=== PATIENT | male | born 1930 | race Caucasian/White ===

== ENCOUNTER 2016-07-04 14:05 | Inpatient (IN) | payer OTHER, MEDICARE ==
[2016-07-04] VITALS (7 sets, daily range): BP systolic 126–166; BP diastolic 67–87; PULSE 71–85; RESP 16–20; TEMP 98.9–100.2; O2SAT 95–98
[~2016-07-04] VITALS: Ht 185.4 cm; Wt 88.2 kg
[~2016-07-04 14:05] MED LIST: LEVO125T3 PO; LOVA40TA PO; METO25CR PO; OMEP20TA39 PO
[2016-07-04] MEDS ORDERED: ASPI325T PO (14:43)
[2016-07-04] MEDS ORDERED: ISOS30TA3 PO (14:43)
[2016-07-04] MEDS ORDERED: LEVO125T4 PO (14:43)
[2016-07-04] MEDS ORDERED: LOVA40TA PO (14:43)
[2016-07-04] MEDS ORDERED: OMEP20TA PO (14:43)
[2016-07-04] MEDS ORDERED: NITR0.4S SL (14:43)
[2016-07-04] MEDS ORDERED: METO25TA3 PO (14:43)
[2016-07-04] MEDS ORDERED: SODIUM CHLORIDE 0.9% FLUSH 5 ML FLUSH IVF PRN (15:00)
--- NOTE | 2016-07-04 15:19 | RADHPO ---
EXAM DATE/TIME: 07/04/2016 15:07 [facility] COMPARISON: No previous studies available for comparison. INDICATIONS : Shortness of breath. MEDICAL HISTORY : Cardiovascular disease. SURGICAL HISTORY : CABG. Pacemaker. ENCOUNTER: Initial ACUITY: 1 week PAIN SCORE: 0/10 LOCATION: Bilateral chest FINDINGS: The patient is status post sternotomy. There is a bi-lead pacemaker in place from the left subclavian approach. The heart size is normal. The lungs are grossly clear. A significant effusion is not seen. CONCLUSION: No acute disease. Familia Cartwright MD on July 04, 2016 at 15:15 Board Certified Radiologist. This report was verified electronically.
--- NOTE | 2016-07-04 15:39 | PD ---
HPI Chief Complaint: Respiratory Symptoms Time Seen by Provider: 14:45 Travel History International Travel<30 days: No Contact w/Intl Traveler<30days: No Traveled to known affect area: No History of Present Illness HPI This is an 86-year-old male who presents to the emergency department with 3 days of generalized weakness, fatigue, feeling like he is having trouble exerting himself. He says whenever he sits down he has trouble getting up. He falls asleep easily. 2 days ago he felt like his legs gave out from under him. He didn't fall or injure his head. Patient denies any chest pain or shortness of breath. He has had a nonproductive cough. He denies any dark stools. He has been checking his temperature and the highest is been is 99.3. Something like this is never happened to him before. PFSH Past Medical History Hx Anticoagulant Therapy: Yes (325MG ASA) Cancer: Yes (NON HODGKINS LYMPHOMA) Cardiovascular Problems: Yes (OPEN HEART 2 YEARS AGO; PM) High Cholesterol: Yes Chemotherapy: Yes () Chest Pain: No Coronary Artery Disease: Yes Diabetes: No Diminished Hearing: No Gastrointestinal Disorders: No GERD: Yes Glaucoma: No Hepatitis: No Hiatal Hernia: No Hypertension: No Integumentary: No Thyroid Disease: Yes Influenza Vaccination: Yes ?: Not Past Surgical History Coronary Artery Bypass Graft: Yes (VALVE REPLACED) Pacemaker: Yes Social History Alcohol Use: No Tobacco Use: No Allergies-Medications (Allergen,Severity, Reaction): Coded Allergies: Darvon (Verified Adverse Reaction, Intermediate, GI UPSET, 07/04/16) Reported Meds & Prescriptions Reported Meds & Active Scripts Active Reported Nitrostat SL (Nitroglycerin) 0.4 Mg Subl 0.4 Mg SL DIRECTED PRN 1 tablet under the tongue as needed for chest pain. Repeat every 5 minutes for a total of 3 DOSES or call 911 if NO relief. Metoprolol Tartrate 25 Mg Tab 25 Mg PO DAILY Omeprazole 20 Mg Tab 20 Mg PO DAILY Isosorbide Mononitrate ER (Isosorbide Mononitrate) 30 Mg Vanna 30 Mg PO DAILY Aspirin 325 Mg Tab 325 Mg PO DAILY Lovastatin 40 Mg Tab 40 Mg PO DAILY Levothyroxine (Levothyroxine Sodium) 125 Mcg Tab 125 Mcg PO DAILY Review of Systems Except as stated in HPI: all other systems reviewed are Neg Physical Exam Narrative GENERAL:Well appearing, no acute distress SKIN: Warm and dry. HEAD: Atraumatic. Normocephalic. EYES: Pupils equal and round. No injection or drainage. ENT: Moist mucous membranes NECK: Trachea midline. CARDIOVASCULAR: Regular rate and rhythm. 3/6 systolic murmur over the left lower sternal border. RESPIRATORY: Rales in the left lower lung field. Clear to auscultation. Breath sounds equal bilaterally. GASTROINTESTINAL: Abdomen soft, non-tender, nondistended. MUSCULOSKELETAL: No obvious deformities. NEUROLOGICAL: Awake and alert. No obvious cranial nerve deficits. Moving all extremities. PSYCHIATRIC: Appropriate mood and affect; insight and judgment normal. Data Data Last Documented VS Vital Signs Date Time Temp Pulse Resp B/P Pulse Ox O2 Delivery O2 Flow Rate FiO2 07/04/16 16:02 85 18 159/67 97 Room Air 07/04/16 14:14 98.9 Orders Electrocardiogram (07/04/16 ) Complete Blood Count With Diff (07/04/16 14:52) Comprehensive Metabolic Panel (07/04/16 14:52) Magnesium (Mg) (07/04/16 14:52) Troponin I (07/04/16 14:52) Chest, Single Ap (07/04/16 14:52) Ecg Monitoring (07/04/16 14:52) Bilateral Bp Monitoring (07/04/16 14:52) Iv Access Insert/Monitor (07/04/16 14:52) Oximetry (07/04/16 14:52) Oxygen Administration (07/04/16 14:52) Sodium Chloride 0.9% Flush (Ns Flush) (07/04/16 15:00) Cath For Specimen (07/04/16 16:23) Urinalysis - C+S If Indicated (07/04/16 16:23) Admit Order (Ed Use Only) (07/04/16 16:54) Labs Laboratory Tests Test 07/04/16 07/04/16 15:35 16:35 White Blood Count 6.8 TH/MM3 Red Blood Count 3.73 MIL/MM3 Hemoglobin 11.5 GM/DL Hematocrit 34.0 % Mean Corpuscular Volume 91.3 FL Mean Corpuscular Hemoglobin 30.8 PG Mean Corpuscular Hemoglobin 33.8 % Concent Red Cell Distribution Width 12.9 % Platelet Count 168 TH/MM3 Mean Platelet Volume 8.4 FL Neutrophils (%) (Auto) 66.3 % Lymphocytes (%) (Auto) 12.0 % Monocytes (%) (Auto) 20.6 % Eosinophils (%) (Auto) 0.1 % Basophils (%) (Auto) 1.0 % Neutrophils # (Auto) 4.5 TH/MM3 Lymphocytes # (Auto) 0.8 TH/MM3 Monocytes # (Auto) 1.4 TH/MM3 Eosinophils # (Auto) 0.0 TH/MM3 Basophils # (Auto) 0.1 TH/MM3 CBC Comment AUTO DIFF Differential Total Cells 100 Counted Neutrophils % (Manual) 67 % Band Neutrophils % 3 % Lymphocytes % 15 % Monocytes % 15 % Neutrophils # (Manual) 4.8 TH/MM3 Differential Comment FINAL DIFF MANUAL Atypical Lymphocytes % Platelet Estimate NORMAL Platelet Morphology Comment NORMAL Red Cell Morphology Comment NORMAL Sodium Level 121 MEQ/L Potassium Level 4.1 MEQ/L Chloride Level 84 MEQ/L Carbon Dioxide Level 26.8 MEQ/L Anion Gap 10 MEQ/L Blood Urea Nitrogen 12 MG/DL Creatinine 0.79 MG/DL Estimat Glomerular Filtration 93 ML/MIN Rate Random Glucose 108 MG/DL Calcium Level 8.0 MG/DL Magnesium Level 2.0 MG/DL Total Bilirubin 0.5 MG/DL Aspartate Amino Transf 39 U/L (AST/SGOT) Alanine Aminotransferase 29 U/L (ALT/SGPT) Alkaline Phosphatase 69 U/L Troponin I 0.04 NG/ML Total Protein 7.7 GM/DL Albumin 3.5 GM/DL Thyroid Stimulating Hormone 0.807 uIU/ML 3rd Gen Urine Color YELLOW Urine Turbidity CLERA Urine pH 6.5 Urine Specific [place] 1.009 Urine Protein TRACE mg/dL Urine Glucose (UA) NEG mg/dL Urine Ketones NEG mg/dL Urine Occult Blood TRACE Urine Nitrite NEG Urine Bilirubin NEG Urine Leukocyte Esterase NEG Urine RBC 4-9 /hpf Urine WBC 0-2 /hpf Urine Squamous Epithelial 0-5 /hpf Cells Microscopic Urinalysis Comment CATH-CULT NOT IND MDM Medical Decision Making Medical Screen Exam Complete: Yes Emergency Medical Condition: Yes Interpretation(s) Afebrile, no tachycardia, normotensive No leukocytosis Hyponatremia TSH is normal Urinalysis: Some red blood cells Differential Diagnosis Arrhythmia, electrolyte abnormality, acute coronary syndrome, urinary tract infection, pneumonia Narrative Course This is an 86-year-old male who presents to the emergency department with generalized weakness. He was placed on a monitor and an IV was established. He was found to have quite a bit of ectopy on telemetry. His pacer was interrogated and demonstrated appropriate sensing and capture with frequent PVCs. Labs demonstrate a sodium of 121. Otherwise urinalysis is negative for infection and chest x-ray was negative for pneumonia. Patient will be admitted for slow hydration in the setting of likely hypovolemic hyponatremia. Physician Communication Physician Communication Discussed with Dr. Lewis Diagnosis Primary Impression: Hyponatremia Admitting Information Admitting Physician Requests: Admit Jo-Ann Montelongo MD Jul 04, 2016 15:39
[2016-07-04 16:08] LABS: AUTOMATED NEUTROPHIL # 4.5 TH/MM3 (1.8-7.7); BASOPHIL # 0.1 TH/MM3 (0-0.2); EOSINOPHIL % 0.1 % (0.0-4.0); LYMPHOCYTE # 0.8 TH/MM3 (1.0-4.8); MEAN CELL VOLUME 91.3 FL (80.0-100.0); MEAN CORPUSCULAR HEMOGLOBIN 30.8 PG (27.0-34.0); MEAN CORPUSCULAR HGB CONC 33.8 % (32.0-36.0); MONO % 20.6 % (0.0-8.0); NEUT % 66.3 % (16.0-70.0); PLATELET COUNT 168 TH/MM3 (150-450); RED BLOOD COUNT 3.73 MIL/MM3 (4.50-5.90); RED CELL DISTRIBUTION WIDTH 12.9 % (11.6-17.2); WHITE BLOOD COUNT 6.8 TH/MM3 (4.0-11.0)
[2016-07-04 16:22] LABS: ANION GAP 10 MEQ/L (5-15); BICARBONATE 26.8 MEQ/L (21.0-32.0); BLOOD UREA NITROGEN 12 MG/DL (7-18); CHLORIDE 84 MEQ/L (98-107); POTASSIUM 4.1 MEQ/L (3.5-5.1)
[2016-07-04 16:30] LABS: ALKALINE PHOSPHATASE 69 U/L (45-117); ALT (GPT) 29 U/L (12-78); AST (GOT) 39 U/L (15-37); GLOMERULAR FILTRATION RATE 93 ML/MIN (>89); TOTAL BILIRUBIN ADULT 0.5 MG/DL (0.2-1.0)
[2016-07-04 16:35] LABS: HEMO FLAGS AUTO DIFF
[2016-07-04 16:36] LABS: SODIUM (NA) 121 MEQ/L (136-145)
[2016-07-04 16:55] LABS: BLOOD, URINE TRACE (NEG); GLUCOSE,URINE NEG (NEG); KETONE, URINE NEG (NEG); NITRITE,URINE NEG (NEG); PH, URINE 6.5 (5.0-8.5)
[2016-07-04 17:06] LABS: URINE COLOR YELLOW (YELLW/STRAW)
[2016-07-04 17:07] LABS: COMMENT (UR) CATH-CULT NOT IND; CULTURE IF INDICATED CATH CULTURE NOT IND; SQUAMOUS EPITHELIAL CELL URINE 0-5 /hpf (0-5); WBC, URINE 0-2 /hpf (0-5)
[2016-07-04] MEDS: SODIUM CHLOR 0.9% 1000 ML INJ 1,000 ML IV SCH (17:08)
[2016-07-04] MEDS ORDERED: ONDANSETRON HCL 4 MG/2 ML VIAL IVP PRN (17:15)
[2016-07-04] MEDS ORDERED: MAGNESIUM HYDROXIDE SUSP 30 ML CUP PO PRN (17:15)
[2016-07-04] MEDS ORDERED: SODIUM CHLORIDE 0.9% FLUSH 5 ML FLUSH FLUSH PRN (17:15)
[2016-07-04] MEDS ORDERED: SODIUM CHLOR 0.9% 1000 ML INJ 1,000 ML IV SCH (17:15)
[2016-07-04] MEDS ORDERED: ACETAMINOPHEN 325 MG TAB PO PRN (17:15)
[2016-07-04] MEDS ORDERED: NALOXONE HCL 0.4 MG/ML AMP IV PRN (17:15)
[2016-07-04 17:54] LABS: BANDS 3 % (0-6); NEUTROPHIL # MANUAL DIFF 4.8 TH/MM3 (1.8-7.7); POLYS (SEG NEUTROPHILS) 67 % (16-70)
[2016-07-04 17:55] LABS: PLATELET ESTIMATE SMEAR NORMAL (NORMAL); PLATELET MORPHOLOGY NORMAL (NORMAL); SCAN/DIFF FINAL DIFF MANUAL; WBC DIFF SAMPLE 100
[2016-07-04] MEDS: HEPARIN SODIUM - SQ 10,000 UNITS/ML VIAL SQ SCH (17:58)
--- NOTE | 2016-07-04 18:02 | HHI.HP ---
[facility] Service [facility] Hospital[facility] Primary Care Physician Lisa Ramírez Do, MD Admission Diagnosis hyponatremia Diagnoses: (1) Hyponatremia Diagnosis: Principal (2) Fatigue Diagnosis: Principal (3) Hypertension Diagnosis: Secondary (4) Hyperlipidemia Diagnosis: Secondary (5) Coronary artery disease Diagnosis: Secondary (6) Hypothyroidism Diagnosis: Secondary Chief Complaint: Fatigue Travel History International Travel<30 Days: No Contact w/Intl Traveler <30 Da: No Traveled to Known Affected Are: No History of Present Illness 86 year-old male with known history of hypertension, hyperlipidemia, coronary artery disease, valve replacement, hypothyroidism who presented to hospital because of fatigue. Patient states that his normal state of health until Friday. He states that he got up went on to some work and when he came home he was just wore out. Then when he got up on Friday he had no energy and this progressed throughout the next day and because he was so wore out and fatigued he came to the hospital for evaluation. Patient did have workup done which did indicate low sodium at 121 and because of those reasons it was recommended by the ER physician that the patient be observed for further recommendations. Patient denies any excessive fluid intake, nausea, vomiting, diarrhea, polydipsia, polyuria. Review of Systems Constitutional: COMPLAINS OF: Fatigue, DENIES: Diaphoretic episodes, Fever, Weight gain, Weight loss, Chills, Dizziness, Change in appetite, Night Sweats Eyes: DENIES: Blurred vision, Diplopia, Eye inflammation, Eye pain, Vision loss , Double Vision Ears, nose, mouth, throat: DENIES: Vertigo, Nasal discharge, Throat pain, Ear Pain, Running Nose, Sinus Pain Respiratory: DENIES: Apneas, Cough, Snoring, Wheezing, Hemoptysis, Sputum production, Shortness of breath Cardiovascular: DENIES: Chest pain, Palpitations, Syncope, Dyspnea on Exertion , Lower Extremity Edema, Orthopnea Gastrointestinal: DENIES: Abdominal pain, Black stools, Bloody stools, Constipation, Diarrhea, Nausea, Vomiting, Difficulty Swallowing, Anorexia Neurologic: DENIES: Abnormal gait, Headache, Localized weakness, Paresthesias, Seizures, Speech Problems, Tremor, Poor Balance Past Family Social History Past Medical History Hypertension Hyperlipidemia Coronary artery disease Hypothyroidism History of non-Hodgkin lymphoma Past Surgical History Cataract surgery Coronary bypass surgery Cardiac Valve replacement Permanent pacemaker placement Reported Medications Reported Meds & Active Scripts Active Reported Nitrostat SL (Nitroglycerin) 0.4 Mg Subl 0.4 Mg SL DIRECTED PRN 1 tablet under the tongue as needed for chest pain. Repeat every 5 minutes for a total of 3 DOSES or call 911 if NO relief. Metoprolol Tartrate 25 Mg Tab 25 Mg PO DAILY Omeprazole 20 Mg Tab 20 Mg PO DAILY Isosorbide Mononitrate ER (Isosorbide Mononitrate) 30 Mg Vanna 30 Mg PO DAILY Aspirin 325 Mg Tab 325 Mg PO DAILY Lovastatin 40 Mg Tab 40 Mg PO DAILY Levothyroxine (Levothyroxine Sodium) 125 Mcg Tab 125 Mcg PO DAILY Allergies: Coded Allergies: Darvon (Verified Adverse Reaction, Intermediate, GI UPSET, 07/04/16) Family History Reviewed is significant for father in his 50s from motor vehicle accident, mother in her 70s, he indicates the doctor told him that his mother just broke down. Social History Patient denies any tobacco, alcohol or illicit drugs Physical Exam Vital Signs Vital Signs Date Time Temp Pulse Resp B/P Pulse Ox O2 Delivery O2 Flow Rate FiO2 07/04/16 17:34 75 18 166/69 97 Room Air 07/04/16 17:33 75 07/04/16 16:02 85 18 159/67 97 Room Air 07/04/16 15:27 99 Room Air 07/04/16 14:39 74 07/04/16 14:14 98.9 71 16 126/69 98 Physical Exam GENERAL: Well-developed, well-nourished, in no acute distress. alert and orientated HEENT: Head is normocephalic without any lesions or masses noted. Facial features are symmetric. Eyes: Pupils equal round reactive to light. Extraocular muscles are intact. Conjunctivae were clear. Oropharyngeal: Pharynx without any erythema edema. Tongue is midline without deviation. Buccal mucosa is moist without any masses or lesions NECK: Supple without any masses. Trachea midline no deviation. No JVD, no bruits are appreciated CARDIAC: Regular rhythm, regular rate. S1/S2 are heard. No murmurs gallops or rubs. LUNGS: Fine crackles noted in the bases No wheeze, rhonchi or rales. No use of accessory muscles on inspiration or expiration. ABDOMEN: Soft, nontender. Nondistended. Bowel sounds heard in all 4 quadrants. No organomegaly or masses. Negative rebound, negative guarding EXTREMITIES: No edema, pulses are equal bilaterally. No cyanosis or clubbing NEUROLOGY: Mood and affect appear appropriate. Cranial nerves II through XII grossly intact. Muscle strength 5/5 in upper and lower extremities bilaterally. Deep tendon reflexes are 2+ in upper and lower extremities bilaterally. Laboratory Laboratory Tests Test 07/04/16 07/04/16 15:35 16:35 White Blood Count 6.8 Red Blood Count 3.73 Hemoglobin 11.5 Hematocrit 34.0 Mean Corpuscular Volume 91.3 Mean Corpuscular Hemoglobin 30.8 Mean Corpuscular Hemoglobin 33.8 Concent Red Cell Distribution Width 12.9 Platelet Count 168 Mean Platelet Volume 8.4 Neutrophils (%) (Auto) 66.3 Lymphocytes (%) (Auto) 12.0 Monocytes (%) (Auto) 20.6 Eosinophils (%) (Auto) 0.1 Basophils (%) (Auto) 1.0 Neutrophils # (Auto) 4.5 Lymphocytes # (Auto) 0.8 Monocytes # (Auto) 1.4 Eosinophils # (Auto) 0.0 Basophils # (Auto) 0.1 CBC Comment AUTO DIFF Sodium Level 121 Potassium Level 4.1 Chloride Level 84 Carbon Dioxide Level 26.8 Anion Gap 10 Blood Urea Nitrogen 12 Creatinine 0.79 Estimat Glomerular Filtration 93 Rate Random Glucose 108 Calcium Level 8.0 Magnesium Level 2.0 Total Bilirubin 0.5 Aspartate Amino Transf 39 (AST/SGOT) Alanine Aminotransferase 29 (ALT/SGPT) Alkaline Phosphatase 69 Troponin I 0.04 Total Protein 7.7 Albumin 3.5 Urine Color YELLOW Urine Turbidity CLERA Urine pH 6.[address] [place] 1.009 Urine Protein TRACE Urine Glucose (UA) NEG Urine Ketones NEG Urine Occult Blood TRACE Urine Nitrite NEG Urine Bilirubin NEG Urine Leukocyte Esterase NEG Urine RBC 4-9 Urine WBC 0-2 Urine Squamous Epithelial 0-5 Cells Microscopic Urinalysis Comment CATH-CULT NOT IND Result Diagram: 07/04/16 1535 07/04/16 1535 Imaging Last Impressions Chest X-Ray 07/04/16 1452 Signed Impressions: Service Date/Time: June 15:07 - CONCLUSION: No acute disease. Familia Cartwright MD Assessment and Plan Assessment and Plan Hyponatremia with presenting symptom of fatigue: Unknown etiology. Will continue workup with obtaining TSH, urine and serum osmolalities, urine sodium level, continue monitor sodium level. Chest x-ray was performed which did not indicate any acute abnormality. Will get physical therapy evaluation Hypertension, hyperlipidemia, coronary disease: We'll continue home medications DVT prevention: Sequential compression devices Written by Jasen Green PA-C, acting as scribe for Dr. Lewis on 07/04/16 at 1800. The documentation accurately reflects the work and decisions performed face-to- face by Dr. Lewis on 07/04/16 at 1800. Problem Qualifiers (1) Fatigue: Qualified Code: R53.83 - Fatigue, unspecified type (2) Hypertension: Qualified Code: I15.9 - Secondary hypertension (3) Hyperlipidemia: Qualified Code: E78.5 - Hyperlipidemia, unspecified hyperlipidemia type (4) Coronary artery disease: Qualified Code: I25.10 - Coronary artery disease, angina presence unspecified, unspecified vessel or lesion type, unspecified whether [place] or transplanted heart (5) Hypothyroidism: Qualified Code: E03.9 - Hypothyroidism, unspecified type Jasen Green Jul 04, 2016 18:02 Zeynep Lewis MD Jul 04, 2016 19:42
[2016-07-04] MEDS: DOCUSATE SODIUM 100 MG CAP PO SCH (21:17)
[2016-07-04] MEDS: SODIUM CHLORIDE 0.9% FLUSH 5 ML FLUSH FLUSH SCH (21:17)
[2016-07-05] VITALS (10 sets, daily range): BP systolic 80–165; BP diastolic 48–79; PULSE 55–84; RESP 14–18; TEMP 97.3–101; O2SAT 92–98
[2016-07-05] MEDS: HEPARIN SODIUM - SQ 10,000 UNITS/ML VIAL SQ SCH ×3 (01:54→16:50)
[2016-07-05] MEDS: LEVOTHYROXINE SODIUM 125 MCG TAB PO SCH (05:26)
[2016-07-05] MEDS: SODIUM CHLOR 0.9% 1000 ML INJ 1,000 ML IV SCH (05:26)
[2016-07-05 06:20] LABS: POTASSIUM 3.8 MEQ/L (3.5-5.1)
[2016-07-05 06:30] LABS: INDIRECT BILIRUBIN 0.4 MG/DL (0.0-0.8); TOTAL BILIRUBIN ADULT 0.5 MG/DL (0.2-1.0)
[2016-07-05] MEDS: ASPIRIN 325 MG TAB PO SCH (08:19)
[2016-07-05] MEDS: DOCUSATE SODIUM 100 MG CAP PO SCH ×2 (08:20→19:48)
[2016-07-05] MEDS: ISOSORBIDE MONONITRATE 30 MG TAB PO SCH (08:23)
[2016-07-05] MEDS: PANTOPRAZOLE SOD 20 MG DELAYED RELEASE TAB PO SCH (08:23)
[2016-07-05] MEDS: METOPROLOL TARTRATE 25 MG TAB PO SCH (08:23)
[2016-07-05] MEDS: PRAVASTATIN SOD 40 MG TAB PO SCH (08:23)
[2016-07-05] MEDS: SODIUM CHLORIDE 0.9% FLUSH 5 ML FLUSH FLUSH SCH ×2 (08:25→19:47)
--- NOTE | 2016-07-05 14:48 | EKG ---
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 DOCTOR: Nai Peterson Interpretating Date/Time 07/05/2016 14:46:53
--- NOTE | 2016-07-05 15:21 | HHI.PR ---
Subjective Remarks Patient seen and examined today with Dr. Lewis. Patient states that he feels much better after the IV fluids. Patient did have fever overnight. Testing was performed which did indicate patient does have influenza. Objective Vitals Vital Signs Date Time Temp Pulse Resp B/P Pulse Ox O2 Delivery O2 Flow Rate FiO2 07/05/16 12:05 97.3 66 18 80/48 92 07/05/16 11:36 66 07/05/16 11:21 92 07/05/16 09:54 98.2 07/05/16 08:05 101.0 55 17 134/76 97 07/05/16 07:15 76 07/05/16 00:00 99.0 84 18 165/79 98 07/04/16 20:00 100.2 80 16 147/87 96 07/04/16 20:00 95 07/04/16 20:00 85 07/04/16 18:45 99.8 79 20 149/77 95 07/04/16 18:31 96 21 07/04/16 18:16 80 18 149/79 99 07/04/16 17:34 75 18 166/69 97 Room Air 07/04/16 17:33 75 07/04/16 16:02 85 18 159/67 97 Room Air 07/04/16 15:27 99 Room Air I/O 07/04/16 07/04/16 07/04/16 07/05/16 07/05/16 07/05/16 07:00 15:00 23:00 07:00 15:00 23:00 Intake Total 443 ml 876 ml Output Total 1610 ml 1250 ml 675 ml Balance -1167 ml -374 ml -675 ml Intake Oral 240 ml 240 ml IV Total 203 ml 636 ml Output Urine Total 1610 ml 1250 ml 675 ml # Voids 1 # Bowel Movements 0 Result Diagram: 07/04/16 1535 07/05/16 0505 Objective Remarks GENERAL: Well-developed, well-nourished, in no acute distress. alert and orientated HEENT: Head is normocephalic without any lesions or masses noted. Facial features are symmetric. Eyes. Extraocular muscles are intact. Conjunctivae were clear. NECK: Supple without any masses. Trachea midline no deviation. No JVD, CARDIAC: Regular rhythm, regular rate. S1/S2 are heard. No murmurs gallops or rubs. LUNGS: Clear to auscultation bilaterally. No wheeze, rhonchi or rales. No use of accessory muscles on inspiration or expiration. ABDOMEN: Soft, nontender. Nondistended. Bowel sounds heard in all 4 quadrants. No organomegaly or masses. Negative rebound, negative guarding EXTREMITIES: No edema, pulses are equal bilaterally. No cyanosis or clubbing NEUROLOGY: Mood and affect appear appropriate. Cranial nerves II through XII grossly intact. Moving all extremities, speech is clear Urinary Catheter: Yes Assessment to: Continue Douglas insert reason: Measure Accurate Output Vascular Central Line Catheter: No A/P Assessment and Plan Influenza A: Patient developed febrile illness while in the hospital, chest x- ray was clear, urine testing was normal. Influenza testing was performed which was positive for influenza A antigen. Patient started on Tamiflu. Blood cultures have been taken will continue monitor that. Hyponatremia with presenting symptom of fatigue: Improving Unknown etiology. TSH, normal. Urine and serum osmolalities were both low, urine sodium level mildly elevated, continue monitor sodium level. Start fluid restriction Chest x -ray was performed which did not indicate any acute abnormality. Continue physical therapy Hypertension, hyperlipidemia, coronary disease, atrial fibrillation: Home medications continued. Patient does have a mildly elevated BNP. Discontinue IV fluids, Douglas in place for accurate input and output. Continue monitor for any congestive heart symptoms DVT prevention: Sequential compression devices Written by Jasen Green PA-C, acting as scribe for Dr. Lewis on 07/05/16 at 1520. The documentation accurately reflects the work and decisions performed face-to- face by Dr. Lewis on 07/05/16 at 1520. Jasen Green Jul 05, 2016 15:21 Zeynep Lewis MD Jul 05, 2016 18:04
[2016-07-05] MEDS: OSELTAMIVIR PHOSPHATE 75 MG CAP PO SCH ×2 (16:49→19:48)
[2016-07-06] VITALS (8 sets, daily range): BP systolic 98–143; BP diastolic 52–73; PULSE 41–79; RESP 12–19; TEMP 97.3–98.3; O2SAT 96–100
[2016-07-06] MEDS: HEPARIN SODIUM - SQ 10,000 UNITS/ML VIAL SQ SCH ×3 (02:16→19:35)
[2016-07-06] MEDS: LEVOTHYROXINE SODIUM 125 MCG TAB PO SCH (06:24)
[2016-07-06] MEDS: METOPROLOL TARTRATE 25 MG TAB PO SCH (10:00)
[2016-07-06] MEDS: PANTOPRAZOLE SOD 20 MG DELAYED RELEASE TAB PO SCH (10:00)
[2016-07-06] MEDS: PRAVASTATIN SOD 40 MG TAB PO SCH (10:00)
[2016-07-06] MEDS: OSELTAMIVIR PHOSPHATE 75 MG CAP PO SCH ×2 (10:01→20:49)
[2016-07-06] MEDS: DOCUSATE SODIUM 100 MG CAP PO SCH ×2 (10:01→20:49)
[2016-07-06] MEDS: ISOSORBIDE MONONITRATE 30 MG TAB PO SCH (10:01)
[2016-07-06] MEDS: ASPIRIN 325 MG TAB PO SCH (10:01)
[2016-07-06] MEDS: SODIUM CHLORIDE 0.9% FLUSH 5 ML FLUSH FLUSH SCH ×2 (10:28→20:49)
[2016-07-06 10:31] LABS: POTASSIUM 3.5 MEQ/L (3.5-5.1)
[2016-07-06 10:34] LABS: BICARBONATE 26.1 MEQ/L (21.0-32.0)
--- NOTE | 2016-07-06 12:07 | HHI.PR ---
Subjective Remarks Patient sitting on the chair clinically doing well no lightheaded or dizziness, no nausea or vomiting, no chest pain or short of breath Sodium today still pending he is on fluid restriction for hyponatremia severe came with 121 Objective Vitals Vital Signs Date Time Temp Pulse Resp B/P Pulse Ox O2 Delivery O2 Flow Rate FiO2 07/06/16 08:00 98.0 60 18 109/64 98 07/06/16 04:01 97.5 69 16 126/71 100 07/06/16 00:01 98.0 66 14 123/60 99 07/05/16 20:03 21 07/05/16 20:01 98.2 74 14 142/59 95 07/05/16 20:00 74 07/05/16 16:05 97.5 58 18 120/76 93 I/O 07/05/16 07/05/16 07/05/16 07/06/16 07/06/16 07/06/16 07:00 15:00 23:00 07:00 15:00 23:00 Intake Total 876 ml 650 ml Output Total 1250 ml 675 ml 1400 ml 200 ml Balance -374 ml -675 ml -750 ml -200 ml Intake Oral 240 ml 650 ml IV Total 636 ml Output Urine Total 1250 ml 675 ml 1400 ml 200 ml Result Diagram: 07/04/16 1535 07/06/16 1016 Objective Remarks GENERAL: This is a well-nourished, well-developed patient, in no apparent distress. SKIN: No rashes, warm and dry HEAD: Atraumatic. Normocephalic. EYES: Pupils equal round and reactive. Extraocular motions intact. No scleral icterus. ENT: Nose without bleeding, or drainage, Airway patent. NECK: Trachea midline. Supple CARDIOVASCULAR: Regular rate and rhythm without murmurs, gallops, or rubs. RESPIRATORY: Fair air entry bilaterally. No wheezes, rales, or rhonchi. GASTROINTESTINAL: Abdomen soft, non-tender, nondistended. Positive bowel sounds MUSCULOSKELETAL: Extremities without clubbing, cyanosis, or edema. Pedal pulses appreciated NEUROLOGICAL: Awake and alert. Moves all extremity. Normal speech.no focal neurological deficit A/P Problem List: (1) Hyponatremia ICD Code: E87.1 Status: Acute (2) Fatigue ICD Code: R53.83 Status: Acute (3) Hypertension ICD Code: I10 Status: Acute (4) Hyperlipidemia ICD Code: E78.5 Status: Acute (5) Coronary artery disease ICD Code: I25.10 Status: Acute (6) Hypothyroidism ICD Code: E03.9 Status: Acute Assessment and Plan Severe Hyponatremia Na 121 with presenting symptom of fatigue: Unknown etiology. Hypoosmolar hypertonic, TSH within normal limits, low urine and serum osmolalities, urine sodium level 26 , continue serial monitor sodium level. Chest x-ray was performed which did not indicate any acute abnormality. PT eval Hypertension, hyperlipidemia, coronary disease: We'll continue home medications DVT prevention: Sequential compression devices Addendum: Sodium today came up to 126 will continue monitoring continue fluid restriction advised the patient about continuing this when he got discharge Discharge Planning Continue monitoring sodium, possible discharge today or tomorrow if sodium. Above 133 Problem Qualifiers (1) Fatigue: Qualified Code: R53.83 - Fatigue, unspecified type (2) Hypertension: Qualified Code: I15.9 - Secondary hypertension (3) Hyperlipidemia: Qualified Code: E78.5 - Hyperlipidemia, unspecified hyperlipidemia type (4) Coronary artery disease: Qualified Code: I25.10 - Coronary artery disease, angina presence unspecified, unspecified vessel or lesion type, unspecified whether [place] or transplanted heart (5) Hypothyroidism: Qualified Code: E03.9 - Hypothyroidism, unspecified type Zeynep Lewis MD Jul 06, 2016 12:07
[2016-07-07] VITALS (7 sets, daily range): BP systolic 106–121; BP diastolic 56–88; PULSE 44–68; RESP 14–20; TEMP 96.9–98.3; O2SAT 94–99
[2016-07-07] MEDS: HEPARIN SODIUM - SQ 10,000 UNITS/ML VIAL SQ SCH ×3 (01:31→18:13)
[2016-07-07] MEDS: LEVOTHYROXINE SODIUM 125 MCG TAB PO SCH (04:47)
[2016-07-07 06:48] LABS: POTASSIUM 3.9 MEQ/L (3.5-5.1)
[2016-07-07 06:51] LABS: BICARBONATE 24.8 MEQ/L (21.0-32.0)
[2016-07-07] MEDS: SODIUM CHLORIDE 0.9% FLUSH 5 ML FLUSH FLUSH SCH ×2 (09:51→20:22)
[2016-07-07] MEDS: PRAVASTATIN SOD 40 MG TAB PO SCH (09:52)
[2016-07-07] MEDS: ISOSORBIDE MONONITRATE 30 MG TAB PO SCH (09:52)
[2016-07-07] MEDS: ASPIRIN 325 MG TAB PO SCH (09:52)
[2016-07-07] MEDS: OSELTAMIVIR PHOSPHATE 75 MG CAP PO SCH ×2 (09:52→20:22)
[2016-07-07] MEDS: METOPROLOL TARTRATE 25 MG TAB PO SCH (09:52)
[2016-07-07] MEDS: PANTOPRAZOLE SOD 20 MG DELAYED RELEASE TAB PO SCH (09:52)
[2016-07-07] MEDS: DOCUSATE SODIUM 100 MG CAP PO SCH ×2 (09:53→20:22)
[2016-07-07] MEDS: SODIUM CHLORIDE 1 GRAM TAB PO SCH (11:17)
--- NOTE | 2016-07-07 12:55 | RADHPO ---
EXAM DATE/TIME: 07/07/2016 12:39 [facility] COMPARISON: No previous studies available for comparison. INDICATIONS : Cough, short of breath MEDICAL HISTORY : None. SURGICAL HISTORY : CABG. Pacemaker. ENCOUNTER: Initial ACUITY: 1 week PAIN SCORE: 0/10 LOCATION: Bilateral chest FINDINGS: PA and lateral views of the chest demonstrate patchy infiltrates in the lung bases greater left lower lobe. Previous median sternotomy with valve replacement. Left-sided pacemaker with intact leads.. O sseous structures are intact.CONCLUSION: 1. Bibasilar infiltrates greater left lower lobe. 2. Heart valve replacement. Marvel Melgar MD on July 07, 2016 at 12:53 Board Certified Radiologist. This report was verified electronically.
--- NOTE | 2016-07-07 15:26 | HHI.PR ---
Subjective Remarks Patient seen and examined today with Dr. Lewis. Patient with increased lung sounds. Sodium is minimally improved. This was discussed with the patient extensively. Objective Vitals Vital Signs Date Time Temp Pulse Resp B/P Pulse Ox O2 Delivery O2 Flow Rate FiO2 07/07/16 12:00 97.5 62 20 106/58 99 07/07/16 08:00 96.9 68 20 111/62 94 07/07/16 04:43 97.7 44 14 121/88 94 07/07/16 00:49 98.0 49 14 106/60 97 07/06/16 21:00 79 07/06/16 20:01 98.3 41 12 111/52 96 07/06/16 16:00 97.4 69 18 98/54 97 I/O 07/06/16 07/06/16 07/06/16 07/07/16 07/07/16 07/07/16 07:00 15:00 23:00 07:00 15:00 23:00 Intake Total 2 ml 750 ml Output Total 200 ml 520 ml Balance -200 ml 2 ml -520 ml 750 ml Intake Oral 750 ml IV Total 2 ml Output Urine Total 200 ml 520 ml # Voids 4 Result Diagram: 07/04/16 1535 07/07/16 0558 Objective Remarks GENERAL: Well-developed, well-nourished, in no acute distress. alert and orientated HEENT: Head is normocephalic without any lesions or masses noted. Facial features are symmetric. Eyes. Extraocular muscles are intact. Conjunctivae were clear. NECK: Supple without any masses. Trachea midline no deviation. No JVD, CARDIAC: Regular rhythm, regular rate. S1/S2 are heard. No murmurs gallops or rubs. LUNGS: Rhonchi noted bilaterally, no wheeze or rales. No use of accessory muscles on inspiration or expiration. ABDOMEN: Soft, nontender. Nondistended. Bowel sounds heard in all 4 quadrants. No organomegaly or masses. Negative rebound, negative guarding EXTREMITIES: No edema, pulses are equal bilaterally. No cyanosis or clubbing NEUROLOGY: Mood and affect appear appropriate. Cranial nerves II through XII grossly intact. Moving all extremities, speech is clear Urinary Catheter: No Vascular Central Line Catheter: No A/P Assessment and Plan Influenza A: Patient developed febrile illness while in the hospital, now afebrile chest x-ray was clear on presentation, however now developing bibasilar infiltrates left greater than right. Patient could be developing secondary bacterial infection or bilateral pneumonia. Influenza testing was performed which was positive for influenza A antigen. Check strep pneumonia antigen, Legionella antigen. Start Levaquin. Continue Tamiflu. Blood cultures and have remained negative for 2 days Hyponatremia with presenting symptom of fatigue: Improving Unknown etiology. TSH, normal. Urine and serum osmolalities were both low, urine sodium level mildly elevated, continue monitor sodium level. Continue fluid restriction Chest x-ray was performed which did not indicate any acute abnormality. Start sodium chloride tablets 1 g daily. Continue physical therapy Hypertension, hyperlipidemia, coronary disease, atrial fibrillation: Home medications continued. Patient does have a mildly elevated BNP. Discontinue IV fluids, Continue monitor for any congestive heart symptoms DVT prevention: Sequential compression devices Written by Jasen Green PA-C, acting as scribe for Dr. Lewis on 07/07/16 at 1145. The documentation accurately reflects the work and decisions performed face-to- face by Dr. Lewis on 07/07/16 at 1145. Jasen Green Jul 07, 2016 15:26 Zeynep Lewis MD Jul 07, 2016 16:01
[2016-07-07 15:59] LABS: HEMATOCRIT 32.5 % (39.0-51.0); MEAN CELL VOLUME 91.7 FL (80.0-100.0); MEAN CORPUSCULAR HEMOGLOBIN 30.1 PG (27.0-34.0); MEAN CORPUSCULAR HGB CONC 32.8 % (32.0-36.0); PLATELET COUNT 204 TH/MM3 (150-450); RED BLOOD COUNT 3.54 MIL/MM3 (4.50-5.90); RED CELL DISTRIBUTION WIDTH 12.8 % (11.6-17.2); WHITE BLOOD COUNT 5.7 TH/MM3 (4.0-11.0)
[2016-07-07 16:04] LABS: HEMO FLAGS AUTO DIFF
[2016-07-07 16:30] LABS: BANDS 11 % (0-6); EOSINOPHILS 1 % (0-4); NEUTROPHIL # MANUAL DIFF 3.2 TH/MM3 (1.8-7.7); POLYS (SEG NEUTROPHILS) 46 % (16-70); WBC DIFF SAMPLE 100
[2016-07-07 16:31] LABS: PLATELET ESTIMATE SMEAR NORMAL (NORMAL); PLATELET MORPHOLOGY NORMAL (NORMAL); ROULEAUX PRESENT (NORMAL); SCAN/DIFF FINAL DIFF MANUAL
[2016-07-07] MEDS ORDERED: LEVOFLOXACIN 750 MG PREMIX INJ 150 ML IV SCH (17:00)
[2016-07-08 00:50] VITALS: BP 129/66; PULSE 82; RESP 18; TEMP 98.2; O2SAT 98
[2016-07-08] MEDS: HEPARIN SODIUM - SQ 10,000 UNITS/ML VIAL SQ SCH ×2 (01:33→08:27)
[2016-07-08] MEDS: LEVOTHYROXINE SODIUM 125 MCG TAB PO SCH (05:00)
[2016-07-08 05:19] VITALS: BP 114/57; PULSE 70; RESP 16; TEMP 96.9; O2SAT 97
[2016-07-08 06:11] LABS: AUTOMATED NEUTROPHIL # 4.6 TH/MM3 (1.8-7.7); BASOPHIL % 0.2 % (0.0-2.0); EOSINOPHIL # 0.1 TH/MM3 (0-0.4); EOSINOPHIL % 1.3 % (0.0-4.0); HEMATOCRIT 32.7 % (39.0-51.0); HEMO FLAGS DIFF FINAL; LYMPHOCYTE # 2.1 TH/MM3 (1.0-4.8); MEAN CELL VOLUME 90.2 FL (80.0-100.0); MEAN CORPUSCULAR HEMOGLOBIN 31.3 PG (27.0-34.0); MEAN CORPUSCULAR HGB CONC 34.7 % (32.0-36.0); NEUT % 58.5 % (16.0-70.0); PLATELET COUNT 201 TH/MM3 (150-450); RED BLOOD COUNT 3.63 MIL/MM3 (4.50-5.90); RED CELL DISTRIBUTION WIDTH 12.9 % (11.6-17.2); WHITE BLOOD COUNT 7.9 TH/MM3 (4.0-11.0)
[2016-07-08 06:22] LABS: POTASSIUM 4.2 MEQ/L (3.5-5.1)
[2016-07-08 06:26] LABS: BICARBONATE 26.7 MEQ/L (21.0-32.0); MAGNESIUM 2.3 MG/DL (1.5-2.5)
[2016-07-08 08:00] VITALS: BP 130/64; PULSE 68; PULSE 78; RESP 20; TEMP 96.1; O2SAT 99
[2016-07-08] MEDS: METOPROLOL TARTRATE 25 MG TAB PO SCH (08:26)
[2016-07-08] MEDS: PRAVASTATIN SOD 40 MG TAB PO SCH (08:26)
[2016-07-08] MEDS: ISOSORBIDE MONONITRATE 30 MG TAB PO SCH (08:26)
[2016-07-08] MEDS: ASPIRIN 325 MG TAB PO SCH (08:26)
[2016-07-08] MEDS: OSELTAMIVIR PHOSPHATE 75 MG CAP PO SCH (08:26)
[2016-07-08] MEDS: PANTOPRAZOLE SOD 20 MG DELAYED RELEASE TAB PO SCH (08:27)
[2016-07-08] MEDS: SODIUM CHLORIDE 1 GRAM TAB PO SCH (08:27)
[2016-07-08] MEDS: DOCUSATE SODIUM 100 MG CAP PO SCH (08:30)
[2016-07-08] MEDS: SODIUM CHLORIDE 0.9% FLUSH 5 ML FLUSH FLUSH SCH (08:38)
[2016-07-08] MEDS ORDERED: SODI1TAB PO (11:31)
[2016-07-08] MEDS ORDERED: OSEL75 PO (11:31)
[2016-07-08] MEDS ORDERED: WALKER WHEELS/F1 MIS (11:32)
[2016-07-08] MEDS ORDERED: LEVA750T PO (11:34)
--- NOTE | 2016-07-08 11:45 | HHI.DS ---
Discharge Summary Admission Date Jul 05, 2016 at 09:31 Discharge Date: Jul 08, 2016 Admitting Diagnosis hyponatremia (1) Hyponatremia ICD Code: E87.1 Diagnosis: Principal (2) Fatigue ICD Code: R53.83 Diagnosis: Principal (3) Hypertension ICD Code: I10 Diagnosis: Secondary (4) Hyperlipidemia ICD Code: E78.5 Diagnosis: Secondary (5) Coronary artery disease ICD Code: I25.10 Diagnosis: Secondary (6) Hypothyroidism ICD Code: E03.9 Diagnosis: Secondary (7) Pneumonia ICD Code: J18.9 Procedures None Brief History - From Admission 86 year-old male with known history of hypertension, hyperlipidemia, coronary artery disease, valve replacement, hypothyroidism who presented to hospital because of fatigue. Patient states that his normal state of health until Friday. He states that he got up went on to some work and when he came home he was just wore out. Then when he got up on Friday he had no energy and this progressed throughout the next day and because he was so wore out and fatigued he came to the hospital for evaluation. Patient did have workup done which did indicate low sodium at 121 and because of those reasons it was recommended by the ER physician that the patient be observed for further recommendations. Patient denies any excessive fluid intake, nausea, vomiting, diarrhea, polydipsia, polyuria. CBC/BMP: 07/08/16 0545 07/08/16 0454 Significant Findings Laboratory Tests Test 07/06/16 07/06/16 07/07/16 07/07/16 10:16 17:32 05:58 15:52 Sodium Level 128 MEQ/L 127 MEQ/L 129 MEQ/L (136-145) (136-145) (136-145) Chloride Level 91 MEQ/L 93 MEQ/L (98-107) (98-107) Estimat Glomerular Filtration 83 ML/MIN (>89) 82 ML/MIN (>89) Rate Random Glucose 116 MG/DL (74-106) Calcium Level 8.3 MG/DL (8.5-10.1) B-Type Natriuretic Peptide 217 PG/ML 305 PG/ML (0-100) (0-100) Blood Urea Nitrogen 19 MG/DL (7-18) Red Blood Count 3.54 MIL/MM3 (4.50-5.90) Hemoglobin 10.6 GM/DL (13.0-17.0) Hematocrit 32.5 % (39.0-51.0) Band Neutrophils % 11 % (0-6) Monocytes % 22 % (0-8) Rouleau PRESENT (NORMAL) Test 07/08/16 07/08/16 04:54 05:45 Sodium Level 132 MEQ/L (136-145) Chloride Level 95 MEQ/L (98-107) Red Blood Count 3.63 MIL/MM3 (4.50-5.90) Hemoglobin 11.4 GM/DL (13.0-17.0) Hematocrit 32.7 % (39.0-51.0) Monocytes (%) (Auto) 14.0 % (0.0-8.0) Monocytes # (Auto) 1.1 TH/MM3 (0-0.9) PE at Discharge GENERAL: Well-developed, well-nourished, in no acute distress. alert and orientated HEENT: Head is normocephalic without any lesions or masses noted. Facial features are symmetric. Eyes. Extraocular muscles are intact. Conjunctivae were clear. NECK: Supple without any masses. Trachea midline no deviation. No JVD, CARDIAC: Regular rhythm, regular rate. S1/S2 are heard. No murmurs gallops or rubs. LUNGS: Rhonchi noted bilaterally, no wheeze or rales. No use of accessory muscles on inspiration or expiration. ABDOMEN: Soft, nontender. Nondistended. Bowel sounds heard in all 4 quadrants. No organomegaly or masses. Negative rebound, negative guarding EXTREMITIES: No edema, pulses are equal bilaterally. No cyanosis or clubbing NEUROLOGY: Mood and affect appear appropriate. Cranial nerves II through XII grossly intact. Moving all extremities, speech is clear Hospital Course 86 years old male admitted with worsening short of breath coughing and severe fatigue hypernatremia with sodium 121, he was found to have positive influenza A started on Tamiflu, started on iv fluid later on serum and urine osmolality where low, the patient admitted drinking 2 much during the day, with he was placed on fluid restriction sodium improved to 126 then to 129, started on low dose salt tablet. Daily assessment patient continue to have cough with phlegm repeated chest x-ray did show bilateral infiltrate, patient was on Levaquin iv, DuoNeb . PT assessment the patient and recommended rehabilitation or home health care with wheeled walker, we continue his home medication for his other medical problem hypertension hyperlipidemia and coronary artery disease. On 07/08/16 Patient really wanted to be discharged, his Levaquin and switched to by mouth and he was advised to follow blood work for his sodium and see his PCP in 2-3 days [id number] encounter performed with the patient on discharge day, as well as physical exam, summary of hospitalization course and postdischarge plan has been D/W the patient. D/W nurse D/W shelter case manager. Discharge medications reviewed and printed and signed, post discharge follow up visit with PCP and other specialist as well as Brief hospital course and discharge summary has been placed. Pt Condition on Discharge: Fair Discharge Disposition: Disch w/ Home Health Serv Discharge Time: > 30 minutes Discharge Instructions DIET: Follow Instructions for: Heart Healthy Diet Activities you can perform: Weight Bearing as Kade Follow up Referrals: PCP Follow-up - 2-3 Days with Do Lisa Ramírez MD New Orders: BASIC METABOLIC PROF - 2-3 Days New Medications: Levofloxacin (Levaquin) 750 Mg Tab 750 MG PO DAILY PRN Infection #7 Ref 0 TAB Walker with Front Wheels (Walker with Front Wheels) 1 Mis Mis 1 EA .ROUTE DIRECTED #1 Ref 0 EA Oseltamivir (Tamiflu) 75 Mg Cap 75 MG PO BID flu #12 CAP Sodium Chloride (Sodium Chloride) 1 Gm Tab 0.5 GM PO DAILY hyponatremia #7 TAB Continued Medications: Aspirin (Aspirin) 325 Mg Tab 325 MG PO DAILY #1 Ref 0 TAB Isosorbide Mononitrate ER (Isosorbide Mononitrate ER) 30 Mg Vanna 30 MG PO DAILY Prevent Chest Pain #30 Ref 0 TAB Levothyroxine (Levothyroxine) 125 Mcg Tab 125 MCG PO DAILY Thyroid #30 Ref 0 TAB Lovastatin (Lovastatin) 40 Mg Tab 40 MG PO DAILY Cholesterol Management #30 Ref 0 TAB Metoprolol Tartrate (Metoprolol Tartrate) 25 Mg Tab 25 MG PO DAILY #30 Ref 0 TAB Omeprazole (Omeprazole) 20 Mg Tab 20 MG PO DAILY #30 Ref 0 TAB Zeynep Lewis MD Jul 08, 2016 11:45
--- NOTE | 2016-07-08 11:47 | HHI.FF ---
Face to Face Verification Diagnosis: (1) Pneumonia (2) Hyponatremia (3) Fatigue (4) Weakness Physical Therapy Order: Evaluate and Treat Occupational Therapy Order: Evaluate and Treat I have seen patient Arjun Zaidi on 07/08/16. My clinical findings support the need for the requested home health care services because: Patient has SOB I certify that my clinical findings support that this patient is homebound because: Unsteady gait/balance Zeynep Lewis MD Jul 08, 2016 11:47
[2016-07-08 12:00] VITALS: BP 106/56; PULSE 68; RESP 20; TEMP 96.3; O2SAT 99
[2016-07-08] MEDS ORDERED: KETOROLAC TROMETHAMINE 60 MG/2 ML (IM) VIAL IM ONE (12:15)
== END 2016-07-08 14:02 | disposition home or self-care (01) | DRG 194 ==
LOC: PHED 14:05 → INTOOBSV 16:54 → PHEDA 16:54 → PH3A 18:28 → OBSVTOIN 07-05 09:31
PROVIDERS: ADMIT Hospitalist; ATTEND Hospitalist
DX: J10.00 Influenza due to other identified influenza virus with unspecified type of pneumonia (principal); E87.1 Hypo-osmolality and hyponatremia; I48.91 Unspecified atrial fibrillation; I15.9 Secondary hypertension, unspecified; E03.9 Hypothyroidism, unspecified; E78.00 Pure hypercholesterolemia, unspecified; Z85.72 Personal history of non-Hodgkin lymphomas; Z79.82 Long term (current) use of aspirin; Z51.11 Encounter for antineoplastic chemotherapy; I25.119 Atherosclerotic heart disease of native coronary artery with unspecified angina pectoris; K21.9 Gastro-esophageal reflux disease without esophagitis; Z95.2 Presence of prosthetic heart valve; Z95.0 Presence of cardiac pacemaker; E78.5 Hyperlipidemia, unspecified
CPT/HCPCS: 71010; 71020; 80048; 80053; 80076; 81001; 82948; 83735; 83880; 83930; 83935; 84295; 84300; 84443; 84484; 85007; 85025; 85027; 87040; 87449; 87804; 93005; G0378; G8987-GP; G8988-GP; J1644; J1885; J1956; J7030